=== PATIENT | male | born 1970 | race Two or more races ===

== ENCOUNTER 2022-11-01 18:35 | Emergency (ER) | payer MEDICAID ==
[~2022-11-01] VITALS: Ht 175.3 cm; Wt 86.3 kg
[2022-11-01 21:34] VITALS: BP 159/101
[2022-11-01] MEDS ORDERED: NAP500T PO (21:52)
[2022-11-01] MEDS ORDERED: CYCL-837 PO (21:52)
[2022-11-01] MEDS ORDERED: KETOROLAC TROMETH 60MG/2ML VIAL IM ONE (22:00)
== END 2022-11-01 23:50 | disposition home or self-care (01) ==
LOC: ER 18:37
DX: S39.012A Strain of muscle, fascia and tendon of lower back, initial encounter (principal); M48.061 Spinal stenosis, lumbar region without neurogenic claudication; M47.9 Spondylosis, unspecified; V29.99XA Rider (driver) (passenger) of other motorcycle injured in unspecified traffic accident, initial encounter; Y93.89 Activity, other specified; Y92.89 Other specified places as the place of occurrence of the external cause; Y99.8 Other external cause status
CPT/HCPCS: 72131; 73502; 96372; 99284; J1885